=== PATIENT | male | born 1980 | race Caucasian/White ===

== ENCOUNTER 2017-07-10 11:38 | Emergency (ER) | payer MEDICAID ==
[~2017-07-10] VITALS: Ht 172.7 cm; Wt 71.2 kg
[2017-07-10 11:43] VITALS: Ht 172.7 cm; Wt 71.2 kg
[2017-07-10 13:11] VITALS: BP 121/76
== END 2017-07-10 13:11 | disposition home or self-care (01) ==
LOC: ED 11:38
DX: M54.5 Low back pain (principal)
CPT/HCPCS: J1885